=== PATIENT | female | born 1955 | race Two or more races ===

== ENCOUNTER 2022-03-28 14:40 | Emergency (ER) | payer OTHER, MEDICAID ==
[~2022-03-28] VITALS: Ht 152.4 cm; Wt 72.7 kg
[2022-03-28] MEDS ORDERED: cefTRIAXone SOD 1,000 MG VL IM ONE ×2 (17:15)
[2022-03-28] MEDS ORDERED: methylPREDNISolone SOD SUCC 125 MG/2 ML VL IM ONE (17:15)
[2022-03-28 17:34] VITALS: BP 127/76
[2022-03-28] MEDS ORDERED: LIDO2SOL23 MT (17:36)
[2022-03-28] MEDS ORDERED: LEV50T PO (17:36)
== END 2022-03-28 17:45 | disposition home or self-care (01) ==
LOC: ER 14:48
DX: J03.90 Acute tonsillitis, unspecified (principal); E05.90 Thyrotoxicosis, unspecified without thyrotoxic crisis or storm; E03.9 Hypothyroidism, unspecified; Z76.0 Encounter for issue of repeat prescription; Z79.899 Other long term (current) drug therapy
CPT/HCPCS: 96372; 99284; J0696; J2930